=== PATIENT | male | born 1990 | race Caucasian/White ===

== ENCOUNTER 2022-06-30 00:39 | Emergency (ER) | payer SELFPAY ==
[~2022-06-30] VITALS: Ht 177.8 cm; Wt 79.4 kg
[2022-06-30] MEDS ORDERED: ONDANSETRON HCL INJ 2MG/ML 2ML 2 MG/ML VIAL IV STA (00:52)
[2022-06-30] MEDS ORDERED: Morphine 4mg INJECTION 4 MG/ML INJ IV ONE (01:00)
[2022-06-30 01:03] LABS: BASOPHILS # (AUTO) 0.1 (0.0-0.1); BASOPHILS % 0.7 % (0.0-1.0); EOSINOPHILS # (AUTO) 0.4 (0.0-0.4); HEMATOCRIT 37.6 % (38.2-49.6); HEMOGLOBIN 13.4 g/dL (14.0-18.0); LYMPHOCYTES # (AUTO) 2.8 (1.0-3.2); LYMPHOCYTES % 28.6 % (18.0-39.1); MEAN CORPUSCULAR HEMOGLOBIN 32.7 pg (28-32); MEAN CORPUSCULAR HGB CONC 35.6 g/dL (31-35); MEAN CORPUSCULAR VOLUME 91.7 fL (81-99); MONOCYTES # (AUTO) 0.7 (0.2-0.8); MONOCYTES % 6.8 % (4.4-11.3); NEUTROPHILS # (AUTO) 5.9 (2.1-6.9); NEUTROPHILS % 59.7 % (38.7-80.0); PLATELET COUNT 226 x10e3/uL (140-360); RED CELL DISTRIBUTION WIDTH 12.2 % (11.7-14.4)
[2022-06-30 01:19] LABS: ALBUMIN 3.9 g/dL (3.5-5.0); ALBUMIN/GLOBULIN RATIO 1.1 (0.8-2.0); ANION GAP 15.6 mmol/L (8-16); CALCIUM 9.2 mg/dL (8.4-10.2); CREATININE, SERUM 1.18 mg/dL (0.72-1.25); POTASSIUM 3.6 mmol/L (3.5-5.1)
[2022-06-30] MEDS ORDERED: IOPAMIDOL 370 MG/ML 100 ML INFUS..BTL INJ ONE (01:22)
[2022-06-30 02:35] LABS: CLARITY,URINE SL CLOUDY (CLEAR); COLOR,URINE YELLOW (YELLOW); KETONES,URINE NEGATIVE (NEGATIVE); LEUKOCYTE ESTERASE ,URINE TRACE (NEGATIVE); NITRITE,URINE NEGATIVE (NEGATIVE); PROTEIN,URINE DIPSTICK NEGATIVE (NEGATIVE); URINE UROBILINOGEN 0.2 mg/dL (0.2 - 1)
[2022-06-30 02:41] LABS: AMORPHOUS SEDIMENT,URINE MODERATE (FEW); BACTERIA,URINE FEW /HPF; EPITHELIAL CELLS,URINE FEW /LPF; RBC,URINE 0-5 /HPF (0-5)
[2022-06-30] MEDS ORDERED: ACETAMINOPHEN-1 EAC4 PO (02:55)
[2022-06-30] MEDS ORDERED: CEFDINIR300 MG PO (02:55)
[2022-06-30 03:23] VITALS: BP 119/72
== END 2022-06-30 03:10 | disposition home or self-care (01) ==
LOC: ER 00:57
DX: K62.89 Other specified diseases of anus and rectum (principal); N39.0 Urinary tract infection, site not specified; Z85.830 Personal history of malignant neoplasm of bone
CPT/HCPCS: 36415; 74177; 80053; 81001; 85025; 99284; J2270; J2405; Q9967

== ENCOUNTER 2023-10-08 12:12 | Emergency (ER) | payer SELFPAY ==
[~2023-10-08] VITALS: Ht 177.8 cm; Wt 79.4 kg
[~2023-10-08 12:12] MED LIST: ACETAMINOPHEN-1 EAC4 PO; CEFDINIR300 MG PO
[2023-10-08 12:16] VITALS: PULSE 84; RESP 16; TEMP 98.5; O2SAT 100
[2023-10-13] MEDS ORDERED: ROPIVACAINE 246.25 MG, EPINEPHRINE HCL 1:1000 1ML 0.5 MG, CLONIDINE HCL 0.08 MG, KETORO... INJ ONE (12:00)
== END 2023-10-08 12:30 | disposition home or self-care (01) ==
LOC: ER 12:18
DX: Z43.3 Encounter for attention to colostomy (principal); Z85.831 Personal history of malignant neoplasm of soft tissue
CPT/HCPCS: 99282